=== PATIENT | female | born 1985 ===

== ENCOUNTER 2024-08-07 10:30 | Emergency (ER) | payer OTHER | END 2024-08-07 13:00 | disposition home or self-care (01) | LOC: LL.ED 10:30 | DX: S06.9X9A Unspecified intracranial injury with loss of consciousness of unspecified duration, initial encounter (principal); S00.81XA Abrasion of other part of head, initial encounter; W22.8XXA Striking against or struck by other objects, initial encounter | CPT/HCPCS: 70450; 72125; 99284 ==